=== PATIENT | female | born 1955 | race African-American/Black ===

== ENCOUNTER 2024-01-06 10:37 | Inpatient (IN) | payer MEDICARE ==
[2024-01-06] VITALS (8 sets, daily range): BP systolic 136–158; BP diastolic 59–64; PULSE 50–78; RESP 18–20; TEMP 98.3–98.5; O2SAT 94–100
[~2024-01-06] VITALS: Ht 160 cm; Wt 90.7 kg
[~2024-01-06 10:37] MED LIST: ATORVASTATIN CA20 MG PO; CELEBREX200 MG PO; CLOPIDOGREL75 MG PO; FISH OIL 1,0001 EAC7; LOSARTAN POTASS25 MG PO; MULTI-VITAMIN1 EACH PO; NORVASC5 MG PO; VALIUM5 MG PO; VITAMIN B-121000 MCG PO
[2024-01-06] MEDS ORDERED: ROPIVACAINE 0.5% 5 MG/ML 30 ML SDV ONE (12:13)
[2024-01-06] MEDS ORDERED: DEXAMETHASONE SOD PHOS 10 MG/1 ML VIAL ONE (12:13)
[2024-01-06] MEDS: Morphine 4mg INJECTION 4 MG/ML INJ IV PRN (17:48)
[2024-01-06] MEDS: ONDANSETRON HCL INJ 2MG/ML 2ML 2 MG/ML VIAL IV PRN (17:49)
[2024-01-06] MEDS ORDERED: MELATONIN 5 MG TABLET PO PRN (22:30)
[2024-01-06] MEDS: HYDROCODONE/APAP 10MG-325MG TAB PO PRN (23:58)
[2024-01-07] VITALS (11 sets, daily range): BP systolic 109–125; BP diastolic 46–63; PULSE 57–101; RESP 16–18; TEMP 97.9–98.9; O2SAT 96–100
[2024-01-07] MEDS: PREGABALIN 25 MG CAP PO SCH (06:02)
[2024-01-07 06:40] LABS: BASOPHILS % 0.3 % (0.0-1.0); EOSINOPHILS # (AUTO) 0.1 (0.0-0.4); EOSINOPHILS % 1.4 % (0.0-6.0); HEMATOCRIT 29.6 % (34.2-44.1); HEMOGLOBIN 9.4 g/dL (12.0-16.0); LYMPHOCYTES # (AUTO) 1.5 (1.0-3.2); LYMPHOCYTES % 20.2 % (18.0-39.1); MEAN CORPUSCULAR HEMOGLOBIN 29.3 pg (28-32); MEAN CORPUSCULAR HGB CONC 31.8 g/dL (31-35); MEAN CORPUSCULAR VOLUME 92.2 fL (81-99); MONOCYTES # (AUTO) 0.7 (0.2-0.8); NEUTROPHILS # (AUTO) 5.1 (2.1-6.9); PLATELET COUNT 149 x10e3/uL (140-360); RED BLOOD COUNT 3.21 x10e6/uL (3.6-5.1); RED CELL DISTRIBUTION WIDTH 12.8 % (11.7-14.4); WHITE BLOOD COUNT 7.32 x10e3/uL (4.8-10.8)
[2024-01-07 06:59] LABS: ANION GAP 11.3 mmol/L (8-16); CALCIUM 9.4 mg/dL (8.4-10.2); CREATININE, SERUM 0.95 mg/dL (0.57-1.11)
[2024-01-07 07:03] LABS: POTASSIUM 3.3 mmol/L (3.5-5.1)
[2024-01-07] MEDS: LOSARTAN POTASSIUM 25 MG TAB PO SCH (08:52)
[2024-01-07] MEDS: CYANOCOBALAMIN 1,000 MCG TAB PO SCH (08:52)
[2024-01-07] MEDS: AMLODIPINE BESYLATE 5 MG TAB PO SCH (08:52)
[2024-01-07] MEDS: CELECOXIB 200 MG CAP PO SCH (08:52)
[2024-01-07] MEDS: MULTIVITAMINS/MINERALS TAB PO SCH (08:52)
[2024-01-07] MEDS ORDERED: DIAZEPAM 5 MG TAB PO SCH (09:00)
[2024-01-07] MEDS ORDERED: BISACODYL 10 MG SUPP PR PRN (09:15)
[2024-01-07] MEDS: POLYETHYLENE GLYCOL 3350 17 GM PACK PO SCH (09:15)
[2024-01-07] MEDS ORDERED: MAGNESIUM HYDROXIDE 30 ML UDC PO PRN (09:15)
[2024-01-07 09:49] LABS: THYROID STIMULATING HORMONE 0.332 uIU/mL (0.350-4.940)
[2024-01-07] MEDS: MAGNESIUM HYDROXIDE 30 ML UDC PO ONE (09:57)
[2024-01-07] MEDS: POTASSIUM CHLORIDE 10MEQ EA PO ONE (09:57)
[2024-01-07] MEDS: SENNA-S TABLET PO SCH (09:57)
[2024-01-07 10:01] LABS: INR 1.05; PROTHROMBIN TIME 14.2 seconds (11.9-14.5)
[2024-01-07 10:02] LABS: PARTIAL THROMBOPLASTIN TIME 26.4 seconds (23.8-35.5)
[2024-01-07 10:20] LABS: FOLATE 12.4 ng/mL (7.0-15.4)
[2024-01-07] MEDS: ENOXAPARIN SOD INJ 40 MG/0.4 ML SYR SC SCH (16:40)
[2024-01-07] MEDS: SODIUM CHLORIDE 0.9% 250ML 250 ML IV ONE (21:25)
[2024-01-07] MEDS: DIAZEPAM 5 MG TAB PO SCH (21:36)
[2024-01-07] MEDS: ATORVASTATIN 40 MG TAB PO SCH (21:36)
[2024-01-08 03:28] VITALS: BP 120/59; PULSE 55; RESP 18; TEMP 98.7; O2SAT 100
[2024-01-08 05:39] LABS: BASOPHILS % 0.1 % (0.0-1.0); EOSINOPHILS # (AUTO) 0.2 (0.0-0.4); EOSINOPHILS % 3.4 % (0.0-6.0); HEMOGLOBIN 9.3 g/dL (12.0-16.0); LYMPHOCYTES # (AUTO) 1.8 (1.0-3.2); MEAN CORPUSCULAR HEMOGLOBIN 29.3 pg (28-32); MEAN CORPUSCULAR VOLUME 94.6 fL (81-99); MONOCYTES # (AUTO) 0.9 (0.2-0.8); MONOCYTES % 12.6 % (4.4-11.3); NEUTROPHILS # (AUTO) 4.1 (2.1-6.9); NEUTROPHILS % 57.6 % (38.7-80.0); PLATELET COUNT 142 x10e3/uL (140-360); RED BLOOD COUNT 3.17 x10e6/uL (3.6-5.1); WHITE BLOOD COUNT 7.04 x10e3/uL (4.8-10.8)
[2024-01-08 05:55] LABS: ANION GAP 12.2 mmol/L (8-16); CALCIUM 9.3 mg/dL (8.4-10.2); CREATININE, SERUM 0.96 mg/dL (0.57-1.11); POTASSIUM 4.2 mmol/L (3.5-5.1)
[2024-01-08 08:00] VITALS: BP 120/59; PULSE 55; RESP 18; TEMP 98.7; O2SAT 100
[2024-01-08 08:08] VITALS: BP 118/44; PULSE 57; RESP 14; TEMP 98.2; O2SAT 100
[2024-01-08] MEDS: BISACODYL 10 MG SUPP PR ONE ×2 (11:55→18:25)
[2024-01-08 12:28] VITALS: BP 127/53; PULSE 62; RESP 16; TEMP 98.5; O2SAT 96
[2024-01-08] MEDS: MAGNESIUM HYDROXIDE 30 ML UDC PO ONE (14:50)
[2024-01-08 17:13] VITALS: PULSE 71; RESP 18; TEMP 98.7; O2SAT 98
[2024-01-08] MEDS: BISACODYL 5 MG TAB EC PO ONE ×2 (18:25→18:28)
[2024-01-08 20:00] VITALS: BP 152/54; PULSE 84; RESP 20; TEMP 98.7; O2SAT 100
[2024-01-09] VITALS (9 sets, daily range): BP systolic 117–134; BP diastolic 49–58; PULSE 65–72; RESP 17–20; TEMP 97.7–99.2; O2SAT 94–100
[2024-01-10] VITALS (9 sets, daily range): BP systolic 117–136; BP diastolic 53–67; PULSE 60–65; RESP 16–18; TEMP 97.5–98.7; O2SAT 94–100
[2024-01-10] MEDS ORDERED: FENTANYL CITRATE/PF 100MCG/2 ML INJ ONE (11:06)
[2024-01-10] MEDS ORDERED: ACETAMINOPHEN 1000 MG/100 ML 100 ML IV ONE (11:23)
[2024-01-10] MEDS ORDERED: SUGAMMADEX SODIUM 200 MG/2 ML VIAL IV ONE (11:23)
[2024-01-10] MEDS ORDERED: TRANEXAMIC ACID 10 ML ONE (14:52)
[2024-01-10] MEDS ORDERED: ACETAMINOPHEN 650 MG SUPP PR PRN (16:45)
[2024-01-10] MEDS ORDERED: ZOLPIDEM TARTRATE 5 MG TAB PO PRN (16:45)
[2024-01-10] MEDS ORDERED: HYDROCODONE/APAP 7.5MG-325MG 1 EA TAB PO PRN (16:45)
[2024-01-10] MEDS ORDERED: HYDROCODONE/APAP 5MG-325MG TAB PO PRN (16:45)
[2024-01-10] MEDS ORDERED: DIPHENHYDRAMINE HCL INJ 50 MG/ML VIAL IV PRN (16:45)
[2024-01-10] MEDS ORDERED: DOCUSATE SODIUM 100 MG CAP PO PRN (16:45)
[2024-01-10] MEDS: CELECOXIB 200 MG CAP PO SCH (17:00)
[2024-01-10] MEDS: ASPIRIN 325 MG TAB PO SCH (17:00)
[2024-01-10] MEDS ORDERED: DEXAMETHASONE SOD PHOS INJ 4 MG/ML SDV ONE (17:36)
[2024-01-10] MEDS ORDERED: PROPOFOL IV EMULSION 10 MG/ML 20 ML VIAL ONE (17:36)
[2024-01-10] MEDS ORDERED: ONDANSETRON HCL INJ 2MG/ML 2ML 2 MG/ML VIAL ONE (17:36)
[2024-01-10] MEDS ORDERED: TRANEXAMIC ACID 1,000 MG/10 ML ML ONE (17:36)
[2024-01-10] MEDS ORDERED: SEVOFLURANE INHAL SOLN 250 ML PEN BTL ONE (17:36)
[2024-01-10] MEDS ORDERED: ACETAMINOPHEN 1000 MG/100 ML IV ONE (17:36)
[2024-01-10] MEDS ORDERED: ROCURONIUM BROMIDE 10 MG/ML 5ML VIAL IV ONE (17:36)
[2024-01-10] MEDS ORDERED: LIDOCAINE HCL 2% LOCAL INJ 5 ML SDV VIAL INJ ONE (17:36)
[2024-01-10] MEDS ORDERED: ACETAMINOPHEN 1000 MG/100 ML IV PRN (18:00)
[2024-01-10] MEDS: SODIUM CHLORIDE 0.9% 1000ML 1,000 ML IV SCH (18:24)
[2024-01-11] VITALS (7 sets, daily range): BP systolic 114–144; BP diastolic 49–58; PULSE 66–77; RESP 17–18; TEMP 97.7–99.3; O2SAT 98–100
[2024-01-11 06:24] LABS: BASOPHILS % 0.1 % (0.0-1.0); HEMATOCRIT 26.5 % (34.2-44.1); HEMOGLOBIN 8.3 g/dL (12.0-16.0); LYMPHOCYTES # (AUTO) 0.9 (1.0-3.2); LYMPHOCYTES % 10.8 % (18.0-39.1); MEAN CORPUSCULAR HEMOGLOBIN 29.6 pg (28-32); MEAN CORPUSCULAR HGB CONC 31.3 g/dL (31-35); MEAN CORPUSCULAR VOLUME 94.6 fL (81-99); MONOCYTES # (AUTO) 0.7 (0.2-0.8); MONOCYTES % 8.5 % (4.4-11.3); NEUTROPHILS # (AUTO) 6.6 (2.1-6.9); NEUTROPHILS % 80.2 % (38.7-80.0); PLATELET COUNT 160 x10e3/uL (140-360); RED CELL DISTRIBUTION WIDTH 12.7 % (11.7-14.4); WHITE BLOOD COUNT 8.21 x10e3/uL (4.8-10.8)
[2024-01-11 07:05] LABS: ANION GAP 12.1 mmol/L (8-16); CALCIUM 8.9 mg/dL (8.4-10.2); CREATININE, SERUM 0.82 mg/dL (0.57-1.11); POTASSIUM 4.1 mmol/L (3.5-5.1)
[2024-01-11] MEDS ORDERED: BENZONATATE 100 MG CAP PO PRN (09:45)
[2024-01-11] MEDS ORDERED: FENTANYL CITRATE/PF 100MCG/2 ML INJ ONE (11:09)
[2024-01-11] MEDS ORDERED: MIDAZOLAM HCL 2 MG/2 ML VIAL ONE (11:09)
[2024-01-11] MEDS ORDERED: IOPAMIDOL 610MG/1ML 300 MG/ML VIAL IV ONE (12:15)
[2024-01-11] MEDS: ONDANSETRON HCL INJ 2MG/ML 2ML 2 MG/ML VIAL IV PRN (20:53)
[2024-01-12] VITALS (10 sets, daily range): BP systolic 118–147; BP diastolic 53–75; PULSE 56–85; RESP 16–19; TEMP 98.3–99.2; O2SAT 96–100
[2024-01-12 06:01] LABS: HEMATOCRIT 24.2 % (34.2-44.1); HEMOGLOBIN 7.5 g/dL (12.0-16.0)
[2024-01-12] MEDS: SODIUM CHLORIDE 0.9% 250ML 250 ML IV ONE ×2 (12:54→19:23)
[2024-01-12] MEDS: DEXAMETHASONE SOD PHOS 10 MG/1 ML VIAL IV ONE ×2 (12:55→19:22)
[2024-01-12] MEDS: ACETAMINOPHEN 325 MG TAB PO ONE ×2 (12:55→19:22)
[2024-01-12] MEDS: FUROSEMIDE INJ 10 MG/ML 2 ML VIAL IV PRN (16:59)
[2024-01-13 00:39] VITALS: BP 113/58; PULSE 55; RESP 17; TEMP 97.7; O2SAT 100
[2024-01-13 04:00] VITALS: BP 151/69; PULSE 58; RESP 17; TEMP 97.4; O2SAT 100
[2024-01-13 06:57] VITALS: PULSE 63; RESP 20; O2SAT 98
[2024-01-13 07:50] VITALS: BP 144/63; PULSE 57; RESP 18; TEMP 97.9; O2SAT 100
[2024-01-13] MEDS ORDERED: HYDROCODONE/APAP 10MG-325MG TAB PO PRN (09:15)
[2024-01-13] MEDS ORDERED: ONDANSETRON HCL 4 MG ORAL DISINTEGRATING TAB PO PRN (09:15)
[2024-01-13 10:31] LABS: BASOPHILS % 0.2 % (0.0-1.0); EOSINOPHILS # (AUTO) 0.1 (0.0-0.4); EOSINOPHILS % 0.4 % (0.0-6.0); HEMATOCRIT 34.9 % (34.2-44.1); HEMOGLOBIN 11.2 g/dL (12.0-16.0); LYMPHOCYTES # (AUTO) 1.8 (1.0-3.2); LYMPHOCYTES % 15.7 % (18.0-39.1); MEAN CORPUSCULAR HEMOGLOBIN 30.5 pg (28-32); MEAN CORPUSCULAR HGB CONC 32.1 g/dL (31-35); MEAN CORPUSCULAR VOLUME 95.1 fL (81-99); MONOCYTES # (AUTO) 1.2 (0.2-0.8); MONOCYTES % 10.5 % (4.4-11.3); NEUTROPHILS # (AUTO) 8.1 (2.1-6.9); NEUTROPHILS % 72.6 % (38.7-80.0); PLATELET COUNT 137 x10e3/uL (140-360); RED BLOOD COUNT 3.67 x10e6/uL (3.6-5.1); RED CELL DISTRIBUTION WIDTH 13.7 % (11.7-14.4)
[2024-01-13 11:03] LABS: CALCIUM 9.7 mg/dL (8.4-10.2); CREATININE, SERUM 0.74 mg/dL (0.57-1.11)
[2024-01-13 11:22] VITALS: BP 149/74; PULSE 67; RESP 18; TEMP 98.5; O2SAT 100
[2024-01-13] MEDS: IRON SUCROSE 100 MG in SODIUM CHLORIDE 0.9% 100 ML IV SCH (11:53)
[2024-01-13] MEDS: SODIUM CHLORIDE 0.9% 250ML 250 ML IV ONE (11:54)
[2024-01-13] MEDS ORDERED: Morphine 4mg INJECTION 4 MG/ML INJ IV PRN (12:15)
[2024-01-13 15:37] VITALS: BP 136/53; PULSE 55; RESP 18; TEMP 97.9; O2SAT 100
[2024-01-13] MEDS: PREGABALIN 50 MG CAP PO SCH (16:26)
== END 2024-01-13 19:21 | DRG 481 ==
LOC: ER 10:41 → ERHOLD 12:06 → MED/SURG3 14:23
PROVIDERS: ADMIT Internal Medicine; ATTEND Internal Medicine
PROC: 0QSB04Z Reposition Right Lower Femur with Internal Fixation Device, Open Approach (ICD-10-PCS; principal; 2024-01-10 14:06)
PROC: 30233N1 Transfusion of Nonautologous Red Blood Cells into Peripheral Vein, Percutaneous Approach (ICD-10-PCS; 2024-01-12)
DX: S72.401A Unspecified fracture of lower end of right femur, initial encounter for closed fracture (principal); D62 Acute posthemorrhagic anemia; M97.11XA Periprosthetic fracture around internal prosthetic right knee joint, initial encounter; K59.00 Constipation, unspecified; I10 Essential (primary) hypertension; E78.5 Hyperlipidemia, unspecified; M81.0 Age-related osteoporosis without current pathological fracture; M19.90 Unspecified osteoarthritis, unspecified site; W01.0XXA Fall on same level from slipping, tripping and stumbling without subsequent striking against object, initial encounter; Y92.002 Bathroom of unspecified non-institutional (private) residence as the place of occurrence of the external cause; Z79.02 Long term (current) use of antithrombotics/antiplatelets; Z88.5 Allergy status to narcotic agent
CPT/HCPCS: 36415; 76000; 80048; 82607; 82746; 83036; 83540; 84443; 84466; 85014; 85018; 85025; 85610; 85730; 86850; 86900; 86920; 94799; 99252; 99284; C1713; J0690; J1100; J1650; J1756; J1940; J2003; J2250; J2270; J2405; J2795; J7030; J7050; P9016